=== PATIENT | male | born 1975 | race American Indian/Alaskan Native ===

== ENCOUNTER 2018-04-19 14:59 | Emergency (ER) | payer OTHER ==
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
[2018-04-19] MEDS ORDERED: MOTRIN PO ONE (16:55)
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
[2018-04-19 18:02] VITALS: BP 140/84
== END 2018-04-19 18:21 | disposition home or self-care (01) ==
LOC: ED 14:59
DX: M62.830 Muscle spasm of back (principal); M25.512 Pain in left shoulder; V89.2XXA Person injured in unspecified motor-vehicle accident, traffic, initial encounter; Y93.89 Activity, other specified; Y92.89 Other specified places as the place of occurrence of the external cause; Y99.8 Other external cause status
CPT/HCPCS: 72100; 99283